=== PATIENT | female | born 1945 | race Caucasian/White ===

== ENCOUNTER → 2019-01-10 | Outpatient (REF) ==
[~2019-01-10] MED LIST: LIPITOR10 MG PO; MELOXICAM15 MG PO; ULTRAM50 M1 PO
== END | disposition home or self-care (01) | DRG 179 ==
LOC: DI 11:37
PROVIDERS: ATTEND Nurse Practitioner Family
DX: R76.11 Nonspecific reaction to tuberculin skin test without active tuberculosis (principal)

== ENCOUNTER 2019-02-27 19:14 | Emergency (ER) | payer MEDICARE, BC ==
[~2019-02-27] VITALS: Ht 157.5 cm; Wt 100.0 kg
[2019-02-28 01:35] VITALS: BP 154/67
== END 2019-02-28 01:34 | disposition short-term general hospital (02) ==
LOC: ED 19:14
DX: S42.212A Unspecified displaced fracture of surgical neck of left humerus, initial encounter for closed fracture (principal); S22.089A Unspecified fracture of T11-T12 vertebra, initial encounter for closed fracture; W10.8XXA Fall (on) (from) other stairs and steps, initial encounter; Y93.89 Activity, other specified; Y92.008 Other place in unspecified non-institutional (private) residence as the place of occurrence of the external cause; R51 Headache; M54.5 Low back pain; M25.512 Pain in left shoulder; R50.9 Fever, unspecified; M48.04 Spinal stenosis, thoracic region

== ENCOUNTER 2020-06-26 10:28 | Observation (INO) | payer MEDICARE, BC ==
[~2020-06-26] VITALS: Ht 157.5 cm; Wt 47.7 kg
--- NOTE | 2020-06-26 10:53 | NUR ---
TO ROOM 6 VIA WHEELCHAIR ACCOMPANIED BY DAUGHTER.
[2020-06-26 11:24] LABS: HEMATOCRIT 46.4 % (37.0-47.0); HEMOGLOBIN 14.6 g/dl (12.0-16.0); IMMATURE GRANULOCYTES 1.2 % (0.0-5.0); MEAN CELL VOLUME 88.4 fL CALC (80.0-100.0); MEAN CORPUSCULAR HGB 27.8 pG CALC (26.0-32.0); MEAN CORPUSCULAR HGB CONC 31.5 g/dL CAL (32.0-36.0); NEUT# 18.91 thou/uL (2.00-7.15); RED BLOOD COUNT 5.25 mill/uL (4.20-5.60); RED CELL DISTRI WIDTH 12.9 % (11.5-15.5)
--- NOTE | 2020-06-26 11:24 | NUR ---
MEDICATED WITH ZOFRAN 4MG IVP WITH MORPHINE 4MG IVP FOR C/O 6/10 RUQ PAIN AND NAUSEA.
[2020-06-26 11:25] LABS: URINE BILIRUBIN - DIPSTICK NEGATIVE (NEGATIVE); URINE BLOOD DIPSTICK SMALL (NEGATIVE); URINE GLUCOSE - DIPSTICK 100 mg/dL (NEGATIVE); URINE KETONE 15 mg/dL (NEGATIVE); URINE LEUK ESTERASE NEGATIVE (NEGATIVE); URINE NITRITE - DIPSTICK NEGATIVE (Negative); URINE PH 5.5 (4.5-8.0); URINE PROTEIN - DIPSTICK 100 mg/dL (NEG-TRACE); URINE SPECIFIC GRAVITY >=1.030
[2020-06-26 11:26] LABS: URINE COLOR DK. YELLOW
[2020-06-26 11:37] LABS: URINE BACTERIA FEW hpf; URINE SQUAMOUS EPITHELIAL CELL MODERATE EPI/hpf (0-FEW)
[2020-06-26 11:50] LABS: ALBUMIN 4.6 g/dL (3.2-5.0); ALKALINE PHOSPHATASE 106 u/l (38-126); ANION GAP 19 (6-22 (CALC)); BUN 18 mg/dL (8-23); BUN/CREATININE RATIO 31 (12-20 (CALC)); CARBON DIOXIDE 23 mmol/l (22-30); CHLORIDE 98 mmol/l (95-108); CREATININE 0.6 mg/dL (0.5-1.0); GFR > 60 ML/MIN (>=60 (CALC)); GFR FOR AFR.AMER. > 60 ML/MIN (>=60 (CALC)); LIPASE 23 u/l (23-300); SGOT/AST 23 u/l (9-36); SODIUM 136 mmol/l (137-146); TOTAL PROTEIN 8.2 g/dL (6.3-8.2)
[2020-06-26 11:51] LABS: BILIRUBIN, TOTAL 2.6 mg/dL (0.0-1.4)
[2020-06-26] MEDS ORDERED: ALENDRONATE35 MG PO (11:59)
[2020-06-26] MEDS ORDERED: AMILORIDE HCL5 MG PO (12:01)
--- NOTE | 2020-06-26 12:15 | NUR ---
TO RADIOLOGY IN STABLE CONDITION VIA STRETCHER.
--- NOTE | 2020-06-26 13:05 | NUR ---
MD AT BEDSIDE TO DISCUSS RESULTS AND POC
--- NOTE | 2020-06-26 13:35 | NUR ---
TO RADIOLOGY IN STABLE CONDITION VIA WHEELCHAIR.
--- NOTE | 2020-06-26 14:46 | NUR ---
NURSE TO NURSE REPORT CALLED TO KAILEY BRUCE. #[id number]
--- NOTE | 2020-06-26 15:04 | NUR ---
TO ROOM 268, TELE MONITOR IN PLACE, VIA WHEELCHAIR ACCOMPANIED BY MARYJANE RN.
--- NOTE | 2020-06-26 15:06 | NUR ---
PT ARRIVED TO UNIT VIA WHEELCHAIR WITH ER STAFF ON ROOM AIR; ALERT AND ORIENTED. AMBULATED TO BED WITH UNSTEADY GAIT; USES WALKER AT HOME. C/O 3/10 BILATERAL KNEE PAIN AND 5/10 RIGHT ABDOMINAL PAIN. RESPIRATIONS EVEN AND UNLABORED ON ROOM AIR. LUNGS ARE CLEAR; ABDOMEN DISTENDED AND SOFT WITH TENDERNESS; BS ACTIVE. POOR CIRCULATION TO BILATERAL FEET WITH DISCOLORATION, WEAK PULSES, AND SLUGGISH CAP REFILL. DAUGHTER AT BEDSIDE. ORIENTED TO ROOM AND CALL LIGHT SYSTEM. PLAN OF CARE DISCUSSED. PT ENCOURAGED TO VEBRALIZE CONCERNS. STATES UNDERSTANDING. SAFETY MEASURES IN PLACE. CALL LIGHT WITHIN REACH.
[2020-06-26 15:46] VITALS: BP 148/77
--- NOTE | 2020-06-26 16:45 | NUR ---
JACQUE ABAD AT BEDSIDE FOR EVAL. LAB AT BEDSIDE FOR REPEAT LACTIC ACID.
--- NOTE | 2020-06-26 17:10 | NUR ---
BIOFIRE SWAB OBTAINED AND SENT TO LAB.
--- NOTE | 2020-06-26 18:13 | NUR ---
IV FLUIDS INITIATED AT 100 ML/HR; ZOSYN INFUSING AT THIS TIME; IV SITE APPEARS HEALTHY. PT C/O MODERATE HEADACHE; TYLENOL GIVEN. BSC PLACED AT BEDSIDE FOR URINARY FREQUENCY.
[2020-06-26 19:00] VITALS: BP 115/63
--- NOTE | 2020-06-26 19:03 | NUR ---
REPORT RECEIVED FROM TEO BONNER. PT RESTING IN BED, NO S/S OF DISTRESS AT THIS TIME. WILL CONTINUE TO MONITOR.
--- NOTE | 2020-06-26 21:30 | NUR ---
PT RESTING IN BED, ALERT AND ORIENTED. RESPIRATIONS EVEN AND UNLABORED ON RA. LUNGS SOUND CLEAR. PEDAL PULSES ARE WEAK. PT REPORTS HAVING MILD DISCOMFORT IN HER ABDOMEN WORSENING WHEN SHE MOVES, PT DENIES NEEDING ANYTHING AT THIS TIME. SAFETY PRECAUTIONS IN PLACE. WILL CONTINUE TO MONITOR.
[2020-06-27] VITALS (10 sets, daily range): BP systolic 98–144; BP diastolic 36–74
--- NOTE | 2020-06-27 | NUR ---
PT RESTING IN BED, RESPIRATIONS EVEN AND UNLABORED, PT NPO AT THIS TIME. SAFETY PRECAUTIONS IN PLACE. WILL CONTINUE TO MONITOR.
--- NOTE | 2020-06-27 04:06 | NUR ---
PT RESTING IN BED, NO S/S OF DISTRESS AT THIS TIME. CONTINUES TO BE NPO, SAFETY PRECAUTIONS IN PLACE. WILL CONTINUE TO MONITOR.
[2020-06-27 05:27] LABS: HEMATOCRIT 43.2 % (37.0-47.0); HEMOGLOBIN 13.4 g/dl (12.0-16.0); IMMATURE GRANULOCYTES 2.5 % (0.0-5.0); MEAN CELL VOLUME 90.2 fL CALC (80.0-100.0); NEUT# 16.62 thou/uL (2.00-7.15); RED BLOOD COUNT 4.79 mill/uL (4.20-5.60); RED CELL DISTRI WIDTH 13.2 % (11.5-15.5)
[2020-06-27 05:50] LABS: ALKALINE PHOSPHATASE 90 u/l (38-126); ANION GAP 13 (6-22 (CALC)); BILIRUBIN, TOTAL 2.7 mg/dL (0.0-1.4); BUN 20 mg/dL (8-23); BUN/CREATININE RATIO 34 (12-20 (CALC)); CARBON DIOXIDE 25 mmol/l (22-30); CHLORIDE 102 mmol/l (95-108); CREATININE 0.6 mg/dL (0.5-1.0); GFR > 60 ML/MIN (>=60 (CALC)); GFR FOR AFR.AMER. > 60 ML/MIN (>=60 (CALC)); POTASSIUM 3.9 mmol/l (3.5-5.1); SGOT/AST 29 u/l (9-36); SODIUM 137 mmol/l (137-146); TOTAL PROTEIN 6.8 g/dL (6.3-8.2)
[2020-06-27 05:54] LABS: ALBUMIN 3.6 g/dL (3.2-5.0)
--- NOTE | 2020-06-27 06:34 | NUR ---
PT OFF THE FLOOR TO OR
--- NOTE | 2020-06-27 07:00 | NUR ---
REPORT RECEIVED FROM TEO CARD. PT OFF UNIT IN OR.
--- NOTE | 2020-06-27 09:08 | NUR ---
NEW ORDERS TO TRANSFER PT TO [facility]. CASE MANAGEMENT NOTFIED. DAUGHTER IN ROOM AND UPDATED.
--- NOTE | 2020-06-27 10:03 | NUR ---
PT ARRIVED BACK TO ROOM VIA BED WITH OR STAFF; DROWSY AND ORIENTED. BEDSIDE REPORT RECEIVED FROM TEO KYLE. PT ON OXYGEN 3L VIA NC; SPO2 95%. NORMAL SALINE INFUSING INTO SAME LAC IV SITE. 4 LAP SITES WITH GAUZE AND TEGADERM; KINGSLEY DRAIN TO RUQ WITH DRESSING TO INSERTION SITE; SANGUINOUS DRAINAGE; 30 ML EMPTIED ON ARRIVAL. ABDOMEN DISTENDED AND FIRM WITH GOOD BOWEL SOUNDS. VSS; AFEBRILE. NAUSEA PATCH BEHIND LEFT EAR. PT IN STABLE CONDITION. DAUGHTER AT BEDSIDE.
--- NOTE | 2020-06-27 11:30 | NUR ---
CASE MANAGEMENT AT BEDSIDE. ROOM ASSIGNMENT RECEIVED AT [facility] IN [place], [place]. ROOM 275. CALL REPORT TO [phone].
--- NOTE | 2020-06-27 12:44 | NUR ---
DILAUDID GIVEN FOR 6/10 ABDOMINAL PAIN. ONE LAP SITE DRESSING NOW WITH 50% BLOODY DRAINGE TO CENTER. WILL CONTINUE TO MONITOR.
--- NOTE | 2020-06-27 13:56 | NUR ---
[facility] AT BEDSIDE. DISCONNECTED FROM ALL ATTACHMENTS EXCEPT OXYGEN.
--- NOTE | 2020-06-27 14:02 | NUR ---
PT TRANSFERRED TO [facility] ER AT THIS TIME VIA [facility] TRANSPORT IN STABLE CONDITION. ALL BELONGINGS SENT WITH PATIENT.
--- NOTE | 2020-06-27 14:09 | NUR ---
REPORT GIVEN TO RADHA.
--- NOTE | 2020-06-28 08:00 | NUR ---
PRELIM BLOOD CX RESULTS SHOW GRAM POSITIVE COCCI. PT WAS TRANSFERRED TO [facility]. RESULTS CALLED TO ZECHARIAH, FAXED TO [phone]. WILL FOLLOW UP WITH FINAL
--- NOTE | 2020-06-29 08:03 | NUR ---
FINAL BLOOD CX RESULTS CALLED TO HANNAH AT [facility], FAXED TO [phone].
== END 2020-06-27 13:58 ==
LOC: ED 10:28 → ED-I 12:54 → ED 13:08 → MS2 13:09
PROVIDERS: Family Medicine; Nurse Practitioner; ADMIT Internal Medicine; ATTEND Internal Medicine
PROC: 0FT44ZZ Resection of Gallbladder, Percutaneous Endoscopic Approach (ICD-10-PCS; principal; 2020-06-27)
PROC: BF001ZZ Plain Radiography of Bile Ducts using Low Osmolar Contrast (ICD-10-PCS; 2020-06-27)
DX: A41.9 Sepsis, unspecified organism (principal); K80.63 Calculus of gallbladder and bile duct with acute cholecystitis with obstruction; K82.A1 Gangrene of gallbladder in cholecystitis; E78.5 Hyperlipidemia, unspecified; Z11.59 Encounter for screening for other viral diseases
CPT/HCPCS: G0378; J0131; J1100; J1610; J1650; J2710; Q9967

== ENCOUNTER 2022-05-30 20:04 | Observation (INO) | payer MEDICARE, BC ==
[2022-05-30] VITALS (10 sets, daily range): BP systolic 119–151; BP diastolic 50–68
[~2022-05-30] VITALS: Ht 157.5 cm; Wt 110.0 kg
[~2022-05-30 20:04] MED LIST changes: +ALENDRONATE35 MG PO; +AMILORIDE HCL5 MG PO
--- NOTE | 2022-05-30 20:20 | NUR ---
PATIENT BROUGHT IN BY EMS. PATIENT ALERT AND ORIENTED WITH MD AT BEDSIDE. DAUGHTER AT BED SIDE.
[2022-05-30 20:38] LABS: HEMATOCRIT 47.5 % (37.0-47.0); HEMOGLOBIN 14.7 g/dl (12.0-16.0); IMMATURE GRANULOCYTES 0.3 % (0.0-5.0); MEAN CELL VOLUME 94.2 fL CALC (80.0-100.0); MEAN CORPUSCULAR HGB 29.2 pG CALC (26.0-32.0); MEAN CORPUSCULAR HGB CONC 30.9 g/dL CAL (32.0-36.0); NEUT# 5.59 thou/uL (2.00-7.15); RED BLOOD COUNT 5.04 mill/uL (4.20-5.60); RED CELL DISTRI WIDTH 13.2 % (11.5-15.5)
[2022-05-30 20:51] LABS: ALBUMIN 4.5 g/dL (3.2-5.0); ALKALINE PHOSPHATASE 93 u/l (38-126); ANION GAP 12 (6-22 (CALC)); BILIRUBIN, TOTAL 1.2 mg/dL (0.0-1.4); BUN 20 mg/dL (8-23); BUN/CREATININE RATIO 27 (12-20 (CALC)); CARBON DIOXIDE 28 mmol/l (22-30); CHLORIDE 107 mmol/l (95-108); CPK 45 u/l (30-165); CREATININE 0.7 mg/dL (0.5-1.0); GFR FOR AFR.AMER. > 60 ML/MIN (>=60 (CALC)); GFR OTHER RACES > 60 ML/MIN (>=60 (CALC)); POTASSIUM 4.1 mmol/l (3.5-5.1); SGOT/AST 28 u/l (9-36); SODIUM 143 mmol/l (137-146); TOTAL PROTEIN 8.5 g/dL (6.3-8.2)
[2022-05-30 21:00] LABS: D-DIMER 0.51 mg/L (0.19-0.60)
--- NOTE | 2022-05-30 21:00 | NUR ---
Reassessment of patient completed. No distress noted.
[2022-05-30 21:01] LABS: MYOGLOBIN 36 ng/mL (0 - 62)
[2022-05-30 21:15] LABS: ACT PARTIAL THROMBO TIME 24.3 SECONDS (20.0-32.5); INTERNATIONAL NORMALIZED RATIO 1.1 RATIO (0.7-1.3); PROTHROMBIN TIME 11.3 SECONDS (9.0-12.5)
--- NOTE | 2022-05-30 22:05 | NUR ---
RECEIVED REPORT FROM TEO DAVIS. PT TAKEN TO [facility] FOR URINE COLLECTION.
--- NOTE | 2022-05-30 22:21 | NUR ---
TELE BOX 7 IN USE
[2022-05-30 22:43] LABS: URINE BILIRUBIN - DIPSTICK NEGATIVE (NEGATIVE); URINE BLOOD DIPSTICK NEGATIVE (NEGATIVE); URINE COLOR YELLOW; URINE GLUCOSE - DIPSTICK NEGATIVE (NEGATIVE); URINE KETONE NEGATIVE (NEGATIVE); URINE LEUK ESTERASE NEGATIVE (NEGATIVE); URINE PROTEIN - DIPSTICK 30 mg/dL (NEG-TRACE); URINE SPECIFIC GRAVITY >=1.030
[2022-05-30 22:44] LABS: URINE NITRITE - DIPSTICK NEGATIVE (Negative)
[2022-05-30 22:47] LABS: URINE BACTERIA MODERATE hpf; URINE CALCIUM OXALATE CRYSTALS FEW lpf; URINE MUCUS FEW hpf (NONE-FEW); URINE SQUAMOUS EPITHELIAL CELL MODERATE EPI/hpf (0-FEW)
--- NOTE | 2022-05-30 23:07 | NUR ---
Admission Note Report Given to: JAMIL HEMPHILL Transported by: Wheelchair X Stretcher Transported with: X Nurse Transporter X Patent IV O2 X Cheese Supervisor Location: ICU X MS2 BEDSIDE REPORT GIVEN. PT AWAKE ALERT AND ORIENTED. NO DISTRESS.
--- NOTE | 2022-05-30 23:07 | NUR ---
PT ARRIVED TO MS2 VIA STRETCHER ACCOMPANIED BY ER NURSE. PT TRANFERRED SELF TO BED FROM STRETCHER SLIDING OVER. NO SIGNS OF DISTRESS NOTED, RESP EVEN AND UNLABORED. PT ALERT AND ORIENTED X3, NO EDEMA NOTED, TEDS APPLIED. ORIENTED PT TO ROOM AND CALL LIGHT, DISCUSSED POC, VERBALIZED UNDERSTANDING. IVF INFUSING TO L HAND EMS SITE, PT TOLERATING WELL. ADMISSION ASSESSMENT COMPLETED, CALL LIGHT IN REACH,CONTINUE TO MONITOR.
[2022-05-31] VITALS (7 sets, daily range): BP systolic 127–142; BP diastolic 54–65
--- NOTE | 2022-05-31 04:00 | NUR ---
PT RESTING IN BED WITH EYES CLOSED, NO SIGNS OF DISTRESS NOTED, RESP EVEN AND UNLABORED. CALL LIGHT IN REACH,CONTINUE TO MONITOR.
[2022-05-31] MEDS ORDERED: GABAPENTIN300 M2 PO (07:11)
[2022-05-31] MEDS ORDERED: TOPROL XL50 MG PO (07:11)
--- NOTE | 2022-05-31 07:50 | NUR ---
PT LAYING IN BED. A&O X3. REPORTS SLIGHT IRVIN BUT DENIES ANY DIZZINESS. CLEAR BREATH SOUNDS UPON AUSCULTATION. ACTIVE BOWEL SOUNDS X4 QUADRANTS. IV #20G LAC INFILTRATED; IV REMOVED ICE PACK GIVEN; PT REQUESTS TO NOT HAVE AN IV PLACED UNTIL SEEING MD PT ANTICIPATES D/C TODAY. RESIN COATER IN PLACE. [facility] IN [facility]. ASSESSMENT COMPLETED. DISCUSSED POC AND THE NEED FOR ORTHOSTATIC BPS PT AGREEABLE TO PLAN. CALL LIGHT WITHIN REACH.
--- NOTE | 2022-05-31 11:43 | NUR ---
DR PANDEY AT BEDSIDE FOR ASSESSMENT AND DISCUSSION OF POC
--- NOTE | 2022-05-31 12:45 | NUR ---
PT SITTING ON THE SIDE OF THE BED WITH DAUGHTER AT SIDE EATING LUNCH. NO DISTRESS NOTED OR NEEDS REPORTED AT THIS TIME. CALL LIGHT WITHIN REACH.
--- NOTE | 2022-05-31 15:34 | NUR ---
Discharge instructions given. Patient verbalizes understanding of same. Discharged in stable condition via Wheelchair to Home with staff. All belongings sent with pt.
== END 2022-05-31 15:34 | disposition home or self-care (01) ==
LOC: ED 20:04 → ED-I 21:55 → ED 22:10 → MS2 22:11
PROVIDERS: Family Medicine; ADMIT Internal Medicine; ATTEND Internal Medicine
DX: R55 Syncope and collapse (principal); I10 Essential (primary) hypertension; E78.5 Hyperlipidemia, unspecified; M19.90 Unspecified osteoarthritis, unspecified site; M81.0 Age-related osteoporosis without current pathological fracture; Z20.822 Contact with and (suspected) exposure to COVID-19
CPT/HCPCS: G0378; J1650